=== PATIENT | female | born 1990 | race Caucasian/White ===

== ENCOUNTER 2017-01-18 18:53 | Emergency (ER) | payer SELFPAY ==
[~2017-01-18] VITALS: Ht 157.5 cm; Wt 75.3 kg
[2017-01-18 21:47] LABS: microscopic required? YES; urine erythrocyte NEGATIVE (NEGATIVE)
[2017-01-18 21:52] LABS: BASOPHIL % 0.6 % (0-2); PLATELET COUNT 244 x10^3mcL (130-400)
[2017-01-18 22:06] LABS: CALCIUM 8.7 mg/dL (8.5-10.1); CARBON DIOXIDE 25.5 mmol/L (21-32); CHLORIDE SERUM 103 mmol/L (98-107); CREATININE SERUM 0.8 mg/dL (0.6-1.0); GFR1 > 60 mL/min; GLUCOSE SERUM 86 mg/dL (74-106); POTASSIUM SERUM 3.7 mmol/L (3.5-5.1); SODIUM SERUM 137 mmol/L (136-145)
[2017-01-18 22:12] LABS: ALBUMIN 3.8 g/dL (3.4-5.0); ALKALINE PHOSPHATASE 58 U/L (46-116); ALT/SGPT 28 U/L (14-59); AST/SGOT 20 U/L (15-37); BILIRUBIN TOTAL 0.19 mg/dL (0.20-1.00); CHOLESTEROL 146 mg/dL (<200); CHOLESTEROL/HDL RATIO 3.7; HDL CHOLESTEROL 40 mg/dL (40-60); LIPASE 103 IU/L (73-393); TRIGLYCERIDES 42 mg/dL (<150)
[2017-01-18 22:13] LABS: TOTAL PROTEIN, SERUM 8.4 g/dL (6.4-8.2)
[2017-01-18 22:15] LABS: FREE T4 0.93 ng/dL (0.76-1.46); FREE THYROXINE INDEX 2.7 ug/dL (1.4-4.5); T3 TOTAL 1.3 ng/mL
[2017-01-18 22:17] LABS: RED CELL DISTRIBUTION WIDTH 15.6 % (11.5-14.5)
[2017-01-18 23:22] VITALS: BP 140/90
== END 2017-01-18 23:22 | disposition home or self-care (01) ==
LOC: ED 18:53
PROVIDERS: Specialist
DX: N72 Inflammatory disease of cervix uteri (principal); N39.0 Urinary tract infection, site not specified; Z88.0 Allergy status to penicillin
CPT/HCPCS: 83880; 84439; 87491; 87591; J1580; Q0092

== ENCOUNTER 2017-02-11 17:30 | Emergency (ER) | payer BC ==
[2017-02-11 18:29] LABS: CALCIUM 8.5 mg/dL (8.5-10.1); CARBON DIOXIDE 26.8 mmol/L (21-32); CHLORIDE SERUM 104 mmol/L (98-107); CREATININE SERUM 0.8 mg/dL (0.6-1.0); GFR1 > 60 mL/min; GLUCOSE SERUM 89 mg/dL (74-106); POTASSIUM SERUM 3.9 mmol/L (3.5-5.1); SODIUM SERUM 139 mmol/L (136-145)
[2017-02-11 18:33] LABS: ALBUMIN 3.4 g/dL (3.4-5.0); ALKALINE PHOSPHATASE 54 U/L (46-116); ALT/SGPT 17 U/L (14-59); AST/SGOT 15 U/L (15-37); BILIRUBIN TOTAL 0.22 mg/dL (0.20-1.00); LIPASE 100 IU/L (73-393); TOTAL PROTEIN, SERUM 7.6 g/dL (6.4-8.2)
[2017-02-11 18:47] LABS: BASOPHIL % 0.5 % (0-2); PLATELET COUNT 224 x10^3mcL (130-400); RED CELL DISTRIBUTION WIDTH 14.5 % (11.5-14.5)
[2017-02-11 19:13] LABS: AMPHETAMINE QUAL UR NONE DETECTED (NEG <=1000)
[2017-02-11 19:56] VITALS: BP 124/80
== END 2017-02-11 19:56 | disposition home or self-care (01) ==
LOC: ED 17:30
PROVIDERS: Emergency Medicine
DX: K21.9 Gastro-esophageal reflux disease without esophagitis (principal); D64.9 Anemia, unspecified; Z88.0 Allergy status to penicillin
CPT/HCPCS: 83880; 85378; J3490; Q0092